=== PATIENT | male | born 1970 | race Caucasian/White ===

== ENCOUNTER 2020-01-18 08:31 | Emergency (ER) | payer OTHER, SELFPAY ==
[2020-01-18 08:38] VITALS: BP 138/91; PULSE 87; TEMP 36.4; O2SAT 98; BMI 29.8
--- NOTE | 2020-01-18 08:47 | W.ED.URI ---
HPI - URI/Sore Throat General: Chief Complaint: Upper Respiratory Infection Stated Complaint: FEVER/COUGH Time Seen by Provider: 01/18/20 08:38 History of Present Illness: HPI Narrative: Patient is a 49-year-old male comes to the ED with a cough and fever. Patient has a past medical history of asthma. Patient also works as a [employer] teacher and says he is unsure if he is been in contact with any known positive COVID cases. Patient says yesterday started to develop a cough with some mild wheezing. He has a prescription of prednisone that he filled and started taking yesterday. He also uses a long-acting inhaler daily and rescue inhaler as needed. Says his cough has been nonproductive and he started develop a mild sore throat. This morning he woke up and his temperature was 99.8 and he took an ibuprofen. He thought he should come in and get checked here in the ED and especially get COVID testing. Patient also says he has had some seasonal allergies with nasal drainage. Associated symptoms: Reports fever(s); Deny abdominal pain, chills, chest pain, diarrhea, headache(s), nasal congestion, nausea or vomiting Review of Systems Const: Reports: fever(s); Denies: chills or fatigue Eyes: Denies: change in vision or eye discomfort ENMT: Reports: throat pain; Denies: odynophagia, nasal discharge or nasal congestion Card: Denies: chest pain, palpitations, edema, swelling of feet/ankles, dyspnea on exertion or orthopnea Resp: Reports: non-productive cough and wheezing; Denies: dyspnea or productive cough GI: Denies: abdominal pain, nausea, vomiting, diarrhea, constipation or hematochezia : Denies: flank pain, difficulty urinating, dysuria or hematuria Musc: Denies: neck pain, back pain or extremity swelling Skin/Breast: Denies: rash or new lesions Neuro: Denies: headache(s), numbness in extremities or weakness in extremities PFS ED PFSH: Surgical History H/O hernia repair H/O knee surgery H/O neck surgery History of ankle surgery Previous back surgery S/P insertion of spinal cord stimulator Family History Mother Cancer Father No problems noted. Social History Smoking and tobacco status: never smoked Alcohol intake: current Alcohol intake frequency: few times a week Marital status: Physical Exam Const: COMMON NORMALS: no acute distress, patient oriented x3, healthy appearing and alert GENERAL APPEARANCE: cooperative and comfortable HENMT: COMMON NORMALS: normocephalic HEAD & SCALP: normocephalic MOUTH: Normal oral and palatal mucosa present THROAT: uvula midline and posterior oropharynx abnormal cobblestoning Eye: COMMON NORMALS: Equal, round and reactive pupils present PUPIL: Yes Equal, round and reactive pupils present Neck/C-Spine: COMMON NORMALS: supple GENERAL: Yes normal visual inspection Resp: COMMON NORMALS: normal respiratory effort, No retractions and No use of accessory muscles EFFORT & INSPECTION: Yes able to speak in complete sentences, No tachypneic, No respiratory distress and No labored AUSCULTATION: wheezes expiratory wheezes, right lower and right upper OTHER: Left lung was clear to auscultation. Cardio: COMMON NORMALS: regular rate, regular rhythm, S1 normal heart sound present, S2 normal heart sound present, No gallops present (Cardio), No clicks present (Cardio), No murmurs present (Cardio) and Peripheral pulses 2+ throughout RATE: regular rate RHYTHM: regular rhythm HEART SOUNDS: S1 normal heart sound present and S2 normal heart sound present PERIPHERAL PULSES: Peripheral pulses 2+ throughout GI: COMMON NORMALS: Normal to inspection, nondistended, normoactive bowel sounds present, Soft to palpation, non-tender and no masses PALPATION: Yes Soft to palpation : COMMON NORMALS: Yes no CVA tenderness BLADDER/KIDNEY EXAM: Yes no CVA tenderness Back/Pelvis: COMMON NORMALS: no CVA tenderness Extremity: COMMON NORMALS: normal to inspection Neuro: COMMON NORMALS: patient oriented x3 and moves all extremities SENSORIUM/ORIENTATION: Yes alert Skin: GENERAL SKIN EXAM: dry skin Course Vital Signs: Vital signs: Vital Signs Temperature 97.5 F L 01/18/20 08:38 Pulse Rate 87 01/18/20 08:38 Blood Pressure 138/91 01/18/20 08:38 Pulse Oximetry 98 01/18/20 08:38 MDM - URI/Sore Throat MDM Narrative: Medical decision making narrative: Patient is a 49-year-old male the ED with a cough and fever. Patient has a history of asthma. 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 Vitals look good. Patient has some mild expiratory wheezing on right side of the lung. Chest x-ray showed no acute findings. CBC and CMP were unremarkable. COVID testing was performed and sent out to the lab. Patient was given Combivent inhaler while in the ED. Patient was told the results should be back in the next 48 hours and that either the hospital will contact patient about covid results or he can contact the hospital if he is not heard anything from them. Return to ED precautions given. Continue using ibuprofen or Tylenol for fevers and take your inhalers as previously prescribed. Patient was told to self quarantine for the next 12 days pending COVID results. Follow-up with PCP in 7 to 10 days. Lab Data: Attestation: I reviewed the patient's lab results. Labs: Lab Results 01/18/20 01/18/20 Range/Units 09:12 09:12 WBC 4.1 (4.0-10.0) 10^3/ uL RBC 4.48 (4.1-5.3) 10^6/u L Hgb 13.4 (11.7-16.6) g/dL Hct 41.6 L (42.0-52.0) % MCV 92.9 (80-94) fL MCH 29.9 (28.0-34.0) pg MCHC 32.2 (30.0-36.0) g/dL RDW 13.9 (12.1-15.1) % Plt Count 203 (130-400) 10^3/c mm MPV 10.3 (7.4-10.4) fL Neut % (Auto) 60.4 % Lymph % (Auto) 24.7 % Marin % (Auto) 12.2 % Eos % (Auto) 1.7 % Baso % (Auto) 1.0 % Neut # (Auto) 2.47 (1.8-7.7) 10^3/u L Lymph # (Auto) 1.0 (0.8-4.8) 10^3/u L Marin # (Auto) 0.5 (0.2-0.9) 10^3/u L Eos # (Auto) 0.1 (0.0-0.8) 10^3/u L Baso # (Auto) 0.0 (0.0-0.1) 10^3/u L Nucleated RBC % (a uto) 0 % Nucleated RBCs # 0.0 /100WBC Sodium 139 (136-145) mmol/L Potassium 3.6 (3.5-5.1) mmol/L Chloride 105 (98-107) mmol/L Carbon Dioxide 26 (22-29) mmol/L Anion Gap 11.6 (5-19) BUN 6 (6-20) mg/dL Creatinine 1.1 (0.7-1.2) mg/dL GFR Calculation 70.6 L (90-130) mL/min Glucose 103 (65-115) mg/dL Calculated Osmolal ity 284 L (285-295) mOsm/k g Calcium 8.1 L (8.5-10.5) mg/dL Total Bilirubin 0.2 (0.15-1.2) mg/dL AST 19 (0-40) U/L ALT 12 (0-41) U/L Alkaline Phosphata se 57 (40-130) IU/L Total Protein 6.6 (6.6-8.7) g/dL Albumin 3.8 (3.5-5.2) g/dL Globulin 2.8 (1.3-4.6) g/dL Imaging Data^: CXR: Attestation: I personally reviewed and interpreted this imaging study as follows: My impression: No acute findings or lung infiltrates seen. Discharge Plan Discharge Patient Disposition: Home Clinical Impression: Encounter for screening laboratory testing for COVID-19 virus Upper respiratory infection Qualifiers: URI type: unspecified viral URI Qualified Code(s): J06.9 - Acute upper respiratory infection, unspecified Condition: Stable Prescriptions: No Action lidocaine (PF) 10 mg/mL (1 %) solution 10 ml SUBCUT ONCE Qty: 1 RF: 0 omeprazole 10 mg capsule,delayed release(DR/EC) 10 mg PO DAILY RF: 0 cholecalciferol (vitamin D3) 1,250 mcg (50,000 unit) capsule PO RF: 0 bupropion HCl 75 mg tablet 300 mg PO DAILY RF: 0 tamsulosin 0.4 mg capsule 0.4 mg PO DAILY RF: 0 terbinafine HCl 250 mg tablet 250 mg PO DAILY RF: 0 oxycodone-acetaminophen [Percocet] 5-325 mg tablet 1 tab PO Q8H PRN (Reason: pain) 6 Days Qty: 18 RF: 0 Discharge Orders: Discharge Order (Routine); Ordered 01/18/20 Ordered By: Corey Chavez Referrals: Shaun Menjivar, [Primary Care Provider] - Discharge Diet: Regular Discharge Activity: Increase activity as tolerated Patient Instructions: Viral Syndrome (ED), Upper Respiratory Infection - Adult Activity Restrictions/Additional Instructions: Follow-up with medical provider as directed in 7-10 days. Self quarantine for 12 days pending COVID test results which should be back in the next 48 hours. Continue taking home meds as previously prescribed. Take ibuprofen or Tylenol for any fevers. Continue using your inhalers as prescribed. Return to the ER or your medical provider if condition worsens. Please read and understand discharge instructions. If any questions, please ask. Coding Level of Care Code ED Converting Operator for Kiran Fwchencho Exam Comprehensive
--- NOTE | 2020-01-18 08:56 | XR_ITS ---
WS: [id number] Portable AP upright chest, 01/18/2020 Clinical Data: cough Comparison: Portable chest, 09/22/2012. Findings: No nodules, masses or effusions are seen. The heart is normal. The pulmonary vascularity is not increased. No pneumonia or pneumothorax is seen. Epidural stimulator wires end in the mid thorac ic epidural space. XR/XR chest 1V portable [id number] Impression: Negative chest.
[2020-01-18 09:25] LABS: Eosinophils # 0.1 10^3/uL (0.0-0.8); Eosinophils % 1.7 %; Hematocrit 41.6 % (42.0-52.0); Hemoglobin 13.4 g/dL (11.7-16.6); Lymphocytes % 24.7 %; Mean Corpuscular HGB Conc 32.2 g/dL (30.0-36.0); Mean Corpuscular Hemoglobin 29.9 pg (28.0-34.0); Mean Corpuscular Volume 92.9 fL (80-94); Mean Platelet Volume 10.3 fL (7.4-10.4); Monocytes # 0.5 10^3/uL (0.2-0.9); Monocytes % 12.2 %; Neutrophils # 2.47 10^3/uL (1.8-7.7); Neutrophils % 60.4 %; Nucleated Red Blood Cells % 0 %; Platelet Count 203 10^3/cmm (130-400); Red Blood Count 4.48 10^6/uL (4.1-5.3); Red Cell Distribution Width 13.9 % (12.1-15.1); White Blood Count 4.1 10^3/uL (4.0-10.0)
[2020-01-18 09:43] LABS: Alanine Aminotransferase 12 U/L (0-41); Albumin Level 3.8 g/dL (3.5-5.2); Alkaline Phosphatase 57 IU/L (40-130); Anion Gap 11.6 (5-19); Aspartate Amino Transferase 19 U/L (0-40); Blood Urea Nitrogen 6 mg/dL (6-20); Calcium 8.1 mg/dL (8.5-10.5); Carbon Dioxide 26 mmol/L (22-29); Chloride 105 mmol/L (98-107); Globulin 2.8 g/dL (1.3-4.6); Glomerular Filtration Rate 70.6 mL/min (90-130); Glucose 103 mg/dL (65-115); Osmolality Calculated 284 mOsm/kg (285-295); Potassium 3.6 mmol/L (3.5-5.1); Sodium 139 mmol/L (136-145); Total Bilirubin 0.2 mg/dL (0.15-1.2); Total Protein 6.6 g/dL (6.6-8.7)
[2020-01-18 10:28] VITALS: PULSE 71; RESP 24; O2SAT 97
[2020-01-18 10:38] VITALS: BP 124/93; PULSE 72; RESP 18; O2SAT 96
[2020-01-19 18:22] LABS: Quest SARS-CoV-2 RNA DETECTED (NOT DETECTED)
--- NOTE | 2020-01-20 08:11 | PC.NURSE ---
Pt called regarding COVID test, pt notified of positive test.
== END 2020-01-18 10:30 | disposition home or self-care (01) ==
PROVIDERS: Emergency Provider Physician Assistant; PCP Emergency Medicine Emergency Medical Services
DX: J06.9 Acute upper respiratory infection, unspecified (principal); U07.1 COVID-19
CPT/HCPCS: 12345; 71045; 80053; 85025; 87635; 94640; 99281; 99283; J3535

== ENCOUNTER 2020-11-15 19:52 | Emergency (ER) | payer OTHER, SELFPAY ==
[2020-11-15 20:03] VITALS: BP 126/87; PULSE 74; RESP 18; TEMP 36.6; O2SAT 96; BMI 30.5
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
[2020-11-15] MEDS: cephALEXin 500 mg Capsule PO (21:25)
[2020-11-15] MEDS: bacitracin ointment Pkt 1 EACH TOPICAL (21:25)
[2020-11-15 21:55] VITALS: BP 111/76; PULSE 78; RESP 16; TEMP 36.7; O2SAT 97
[2020-11-15 21:58] VITALS: BP 111/76; PULSE 72; RESP 16; TEMP 36.7; O2SAT 96
== END 2020-11-15 21:58 | disposition home or self-care (01) ==
PROVIDERS: Emergency Provider Nurse Practitioner Family; PCP Emergency Medicine Emergency Medical Services
DX: T25.222A Burn of second degree of left foot, initial encounter (principal); T24.1 Burn of first degree of lower limb, except ankle and foot; X10.2XXA Contact with fats and cooking oils, initial encounter
CPT/HCPCS: 99283

== ENCOUNTER 2023-08-06 13:15 | Outpatient (RCR) | payer OTHER, SELFPAY | END 2023-08-08 23:59 | disposition home or self-care (01) | LOC: SPT 13:15 | PROVIDERS: Visit Provider Orthopaedic Surgery Adult Reconstructive Orthopaedic Surgery | DX: Z47.1 Aftercare following joint replacement surgery (principal); Z96.651 Presence of right artificial knee joint | CPT/HCPCS: 97110; 97161 ==

== ENCOUNTER 2023-08-09 06:00 | Outpatient (RCR) | payer OTHER, SELFPAY | END 2023-09-07 23:59 | disposition home or self-care (01) | LOC: SPT 06:00 | PROVIDERS: Visit Provider Orthopaedic Surgery Adult Reconstructive Orthopaedic Surgery | DX: Z47.1 Aftercare following joint replacement surgery (principal); Z96.651 Presence of right artificial knee joint | CPT/HCPCS: 97110 ==

== ENCOUNTER 2023-09-08 06:00 | Outpatient (RCR) | payer OTHER, SELFPAY | END 2023-10-08 23:59 | disposition home or self-care (01) | LOC: SPT 06:00 | PROVIDERS: Visit Provider Orthopaedic Surgery Adult Reconstructive Orthopaedic Surgery | DX: Z47.1 Aftercare following joint replacement surgery (principal); Z96.651 Presence of right artificial knee joint | CPT/HCPCS: 97110 ==

== ENCOUNTER → 2025-02-13 09:33 | Outpatient (BNVA) | payer OTHER, SELFPAY | PROVIDERS: Visit Provider Nurse Practitioner Family | DX: B36.0 Pityriasis versicolor (principal); L57.8 Other skin changes due to chronic exposure to nonionizing radiation; D22.5 Melanocytic nevi of trunk | CPT/HCPCS: 99204 ==

== ENCOUNTER → 2025-03-19 09:14 | Outpatient (BNVA) | payer OTHER, SELFPAY | PROVIDERS: Visit Provider Nurse Practitioner Family | DX: B36.0 Pityriasis versicolor (principal) | CPT/HCPCS: 99212 ==